=== PATIENT | female | born 1960 | race Caucasian/White ===

== ENCOUNTER 2019-01-14 07:47 | Day surgery (SDC) | payer BC ==
[2019-01-08 17:24] VITALS: BMI 20.9
[2019-01-14 08:23] VITALS: TEMP 97.8
[2019-01-14] MEDS ORDERED: PROPOFOL 20 ML ONE (09:12)
[2019-01-14 11:10] VITALS: BP 120/76; PULSE 74
== END 2019-01-14 11:15 | disposition home or self-care (01) ==
LOC: FASU-ENDO 07:47
PROVIDERS: ATTEND Internal Medicine Gastroenterology
PROC: 0D5H8ZZ Destruction of Cecum, Via Natural or Artificial Opening Endoscopic (ICD-10-PCS; principal; 2019-01-14 10:09)
DX: Z12.11 Encounter for screening for malignant neoplasm of colon (principal); K55.20 Angiodysplasia of colon without hemorrhage

== ENCOUNTER 2020-07-28 05:41 | Emergency (ER) | payer BC ==
[2020-07-28] MEDS ORDERED: ASPIRIN 81 MG CHEWABLE TABLETS PO ONE (05:56)
--- NOTE | 2020-07-28 05:56 | PDOC ---
History of Present Illness - General Chief Complaint: Chest Pain Stated Complaint: chest pain Time Seen by Provider: 07/28/20 05:47 History Source: Patient Exam Limitations: No Limitations - History of Present Illness Initial Comments: 07/28/20 05:57 Woke up with right shoulder pain at nidnight; now with CP like something is pressing on her chest. Pt says she feels SOB Pt has 100%O2sat SHe is compliant with her synthroid of 112mcg daily; complete thyroidectomy Pt has no PMHx other than fertility issues and surgeries/procedures related to that. Is this a multiple visit Asthma Patient?: No Past History - Travel History Traveled outside of the country in the last 30 days: No Close contact w/someone who was outside of country & ill: No - Medical History Allergies/Adverse Reactions: Allergies Allergy/AdvReac Type Severity Reaction Status Date / Time gentamicin Allergy Intermediate Hives Verified 07/28/20 05:42 vancomycin Allergy Intermediate Hives Verified 07/28/20 05:42 Home Medications: Ambulatory Orders Levothyroxine [Synthroid -] 112 mcg PO DAILY 01/08/19 Multivitamins [Tab-A-Vit -] 1 tab PO DAILY 01/08/19 Omeprazole 20 mg PO DAILY #7 capsule. 07/28/20 Anemia: No Asthma: No Cancer: Yes (THYROID) Cardiac Disorders: Yes (MILD HEART MURMUR) CVA: No COPD: No CHF: No Dementia: No Diabetes: No GI Disorders: No Disorders: No HTN: No Hypercholesterolemia: No Liver Disease: No Seizures: No Thyroid Disease: Yes - Surgical History Abdominal Surgery: Yes (LAPAROSCOPY FOR INFERTILITY) Appendectomy: No Cardiac Surgery: No Cholecystectomy: No Lung Surgery: No Neurologic Surgery: No Orthopedic Surgery: No - Psycho-Social/Smoking History Smoking History: Never smoked Review of Systems - Review of Systems Constitutional: No: Symptoms Reported, See HPI, Chills, Diaphoresis, Fever, Loss of Appetite, Malaise, Night Sweats, Weakness, Weight Stable, Unintentional Wgt. Loss, Unexplained wgt Loss, Other HEENTM: No: Symptoms Reported, See HPI, Eye Pain, Blurred Vision, Tearing, Recent change in vision, Double Vision, Cataracts, Ear Pain, Ocular Prothesis, Ear Discharge, Nose Pain, Nose Congestion, Tinnitus, Nose Bleeding, Hearing Loss, Throat Pain, Throat Swelling, Mouth Pain, Dental Problems, Difficulty Swallowing, Mouth Swelling, Other Respiratory: No: Symptoms reported, See HPI, Cough, Orthopnea, Shortness of Susan ath, SOB with Exertion, SOB at Rest, Stridor, Wheezing, Productive cough, Hemoptysis, Other Cardiac (ROS): No: Symptoms Reported, See HPI, Chest Pain, Edema, Irregular Heart Rate, Lightheadedness, Palpitations, Syncope, Chest Tightness, Other ABD/GI: No: Symptoms Reported, See HPI, Abdominal Distended, Abd. Pain w/ defecation, Blood Streaked Bowels, Constipated, Diarrhea, Difficulty Swallowing, Nausea, Poor Appetite, Poor Fluid Intake, Rectal Bleeding, Vomiting, Indigestion, Abdominal cramping, Tarry Stools, Other : No: Symptoms Reported, See HPI, Burning, Dysuria, Discharge, Frequency, Flank Pain, Hematuria, Incontinence, Pain, Urgency, Testicular Mass, Testicular Swelling, Lesions, Testicular Pain, Other Musculoskeletal: No: Symptoms Reported, See HPI, Back Pain, Gout, Joint Pain, Joint Swelling, Muscle Pain, Muscle Weakness, Neck Pain, Joint Stiffness, Other *Physical Exam - Physical Exam General Appearance: Yes: Nourished, Appropriately Dressed, Mild Distress HEENT: positive: EOMI, SARA, Normal ENT Inspection, Normal Voice, Symmetrical, TMs Normal, Pharynx Normal Neck: positive: Tender, Trachea midline, Normal Thyroid, Supple Respiratory/Chest: positive: Lungs Clear, Normal Breath Sounds. negative: Respiratory Distress Cardiovascular: positive: Regular Rhythm, Regular Rate, S1, S2 Gastrointestinal/Abdominal: positive: Flat, Soft Musculoskeletal: positive: Normal Inspection. 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, Fully Oriented, Alert, Normal Mood/Affect, Normal Response, Motor Strength 5/5 Heart Score/ECG Review - History History: Moderately suspicious - Electrocardiogram EKG: Normal - Age Age: 45-65 - Risk Factors Based on the list above the patient has:: No risk factors known - ECG Intrepretation Rhythm: Regular Rhythm Comment:: 07/28/20 06:59 rate 64 bpm - [place]: Normal - P and LA Prominent R with upright T in V1 (true posterior UT): No WPW: No - ST and T Early Repolarization: No Non Specific ST-T Wave changes: No - ECG Impressions Normal ECG: Yes Non-specific ST Elevation: No Ischemic Changes: No Bradycardia: No Torsades mary alice Pointes: No WPW: No ED Treatment Course - LABORATORY CBC & Chemistry Diagram: 07/28/20 06:05 07/28/20 06:05 Medical Decision Making - Medical Decision Making 07/28/20 05:59 Pt will have EKG and CXR and cardiac enzymes and TSH and CBC Pt will be signed out to the day ER docs 07/28/20 06:58 All results are pending. Pt will be signed out to the day ER docs. Discharge - Discharge Information Problems reviewed: Yes Clinical Impression/Diagnosis: Chest pain Qualifiers: Chest pain type: unspecified Qualified Code(s): R07.9 - Chest pain, unspecified Right shoulder pain Qualifiers: Chronicity: acute Qualified Code(s): M25.511 - Pain in right shoulder Condition: Stable Disposition: HOME - Additional Discharge Information Prescriptions: Omeprazole 20 mg PO DAILY #7 capsule.dr - Follow up/Referral Referrals: ON STAFF,NOT [Non Staff, Medical] - - Patient Discharge Instructions Patient Printed Discharge Instructions: DI for Chest Pain Additional Instructions: You were seen in the ER for chest pain. We did lab work on your blood and urine, an electrocardiogram, and a chest X-ray, and we did not find any concerning abnormalities. Your symptoms improved with the medications we gave you in the ER. 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 Please follow up with your regular doctor on Friday. Call their clinic as soon as possible, tell them you were seen in the ER for chest pain and shoulder pain, and tell them you need an appointment. If you have any new or worsening symptoms, especially worsening chest pain, jaw pain or neck pain, recurrence of shoulder/arm pain, worsening shortness of breath, sweats, nausea, loss of consciousness, palpitations, or other symptoms, please take 4 chewable baby aspirin and come back to the ER at any time (24 hours a day). If you are having severe or life threatening symptoms, or symptoms that make it unsafe to drive or have someone drive you, please call 911. - Post Discharge Activity
[2020-07-28] MEDS ORDERED: morphine CARPU-JECT 2 MG/1 ML DISP.SYRIN IVPUSH ONE (06:07)
[2020-07-28] MEDS ORDERED: ASPIRIN 81 MG CHEWABLE TABLETS ONE (06:09)
[2020-07-28 06:19] VITALS: PULSE 58; TEMP 98.3; BMI 21.3
[2020-07-28] MEDS ORDERED: morphine SULFATE 4 MG/ML VIAL ONE (06:31)
[2020-07-28 07:30] LABS: HEMATOCRIT 44.9 % (32.4-45.2); MCH 30.1 pg (25.7-33.7); MCHC 33.4 g/dl (32.0-36.0); MEAN CELL VOLUME 90.2 fl (80-96); MEAN PLT VOLUME 7.6 fl (7.5-11.1); PLATELET COUNT 347 K/MM3 (134-434); RBC 4.98 M/mm3 (3.60-5.2); RDW 12.4 % (11.6-15.6); WHITE BLOOD COUNT 9.5 K/mm3 (4.0-10.8)
[2020-07-28 07:36] LABS: ALBUMIN 4.4 g/dl (3.4-5.0); BILIRUBIN,TOTAL 0.8 mg/dl (0.2-1); CALCIUM 9.4 mg/dl (8.5-10); CREATININE 0.7 mg/dl (0.55-1.3); POTASSIUM 4.3 mmol/L (3.5-5.1); TOT PROT 7.1 g/dl (6.4-8.2)
--- NOTE | 2020-07-28 08:46 | PDOC ---
*Physical Exam - Vital Signs Last Vital Signs Temp Pulse Resp BP Pulse Ox 98.3 F 58 L 17 140/80 100 07/28/20 06:14 07/28/20 06:14 07/28/20 06:14 07/28/20 06:14 07/28/20 06:14 - Physical Exam Patient's care endorsed to me by Dr. Jordan at the end of her shift pending [facility] workup and reassessment. Patient is a 60YOF without PMH who p/w chest pain radiating to her shoulder, unlike any prior episodes before. At the time of my exam she states she is pain free, she has normal exam, and wants to go home. We discuss we are waiting for the remaining results and will do dispo planning. Heart Score/ECG Review - History History: Moderately suspicious - Electrocardiogram EKG: Normal - Age Age: 45-65 - Risk Factors Based on the list above the patient has:: No risk factors known - Troponin Troponin: </= normal limit - Score Heart Score - Total: 2 #1 Sinus rhythm, rate 65, normal axis and intervals, no ischemic ST-T changes ED Treatment Course - LABORATORY CBC & Chemistry Diagram: 07/28/20 06:05 07/28/20 06:05 - ADDITIONAL ORDERS Additional order review: Laboratory Results 07/28/20 07/28/20 06:05 06:05 Sodium 139 Potassium 4.3 Chloride 105 Carbon Dioxide 27 Anion Gap 7 L BUN 18.0 Creatinine 0.7 Est GFR (CKD-EPI)AfAm 107.62 Est GFR (CKD-EPI)NonAf 92.86 Random Glucose 102 Calcium 9.4 Total Bilirubin 0.8 AST 25 ALT 23 Alkaline Phosphatase 71 Creatine Kinase 36 Troponin I < 0.03 Total Protein 7.1 Albumin 4.4 07/28/20 06:05 RBC 4.98 MCV 90.2 MCHC 33.4 RDW 12.4 MPV 7.6 - Medications Given in the ED: ED Medications Discontinued Medications Generic Name Dose Route Start Last Admin Trade Name Freq PRN Reason Stop Dose Admin Aspirin 324 mg 07/28/20 05:56 07/28/20 06:11 Asa - PO 07/28/20 05:57 324 mg ONCE ONE Administration Morphine Sulfate 2 mg 07/28/20 06:07 07/28/20 06:35 Morphine Injection - IVPUSH 07/28/20 06:08 2 mg ONCE ONE Administration Medical Decision Making - Medical Decision Making Provider Orders Category Date Time Status ELECTROCARDIOGRAM [CARD] Stat Cardiology 07/28/20 05:47 Completed EKG needed NOW Care 07/28/20 05:47 Completed CARDIAC PROFILE (ONLY [facility]) Stat Lab 07/28/20 06:05 Completed CBC [COMPLETE BLOOD COUNT] Stat Lab 07/28/20 06:05 Completed COMP METABOLIC PANEL Stat Lab 07/28/20 06:05 Completed THYROID STIMULATING HORMONE Stat Lab 07/28/20 06:05 Completed Aspirin [ASA -] Medication 07/28/20 06:09 Discontinued 324 mg .ROUTE .STK-MED ONE Aspirin [ASA -] Medication 07/28/20 05:56 Discontinued 324 mg PO ONCE ONE Morphine Injection - Medication 07/28/20 06:07 Discontinued 2 mg IVPUSH ONCE ONE Morphine Sulfate Medication 07/28/20 06:31 Discontinued 4 mg .ROUTE .STK-MED ONE CHEST PA & LAT [RAD] Stat Radiology 07/28/20 05:56 Completed Medications Discontinued Medications Generic Name Dose Route Start Last Admin Trade Name Freq PRN Reason Stop Dose Admin Aspirin 324 mg 07/28/20 05:56 07/28/20 06:11 Asa - PO 07/28/20 05:57 324 mg ONCE ONE Administration Aspirin Confirm 07/28/20 06:09 Asa - Administered 07/28/20 06:10 Dose 324 mg .ROUTE .STK-MED ONE Morphine Sulfate 2 mg 07/28/20 06:07 07/28/20 06:35 Morphine Injection - IVPUSH 07/28/20 06:08 2 mg ONCE ONE Administration Morphine Sulfate Confirm 07/28/20 06:31 Morphine Sulfate Administered 07/28/20 06:32 Dose 4 mg .ROUTE .STK-MED ONE Lab Results WBC 9.5 K/mm3 (4.0-10.8) 07/28/20 06:05 RBC 4.98 M/mm3 (3.60-5.2) 07/28/20 06:05 Hgb 15.0 GM/dl (10.7-15.3) 07/28/20 06:05 Hct 44.9 % (32.4-45.2) 07/28/20 06:05 MCV 90.2 fl (80-96) 07/28/20 06:05 MCH 30.1 pg (25.7-33.7) 07/28/20 06:05 MCHC 33.4 g/dl (32.0-36.0) 07/28/20 06:05 RDW 12.4 % (11.6-15.6) 07/28/20 06:05 Plt Count 347 K/MM3 (134-434) 07/28/20 06:05 MPV 7.6 fl (7.5-11.1) 07/28/20 06:05 Sodium 139 mmol/L (136-145) 07/28/20 06:05 Potassium 4.3 mmol/L (3.5-5.1) 07/28/20 06:05 Chloride 105 mmol/L (98-107) 07/28/20 06:05 Carbon Dioxide 27 mmol/L (21-32) 07/28/20 06:05 Anion Gap 7 MMOL/L (8-16) L 07/28/20 06:05 BUN 18.0 mg/dl (7-18) 07/28/20 06:05 Creatinine 0.7 mg/dl (0.55-1.3) 07/28/20 06:05 Est GFR (CKD-EPI)AfAm 107.62 07/28/20 06:05 Est GFR (CKD-EPI)NonAf 92.86 07/28/20 06:05 Random Glucose 102 mg/dl (74-106) 07/28/20 06:05 Calcium 9.4 mg/dl (8.5-10) 07/28/20 06:05 Total Bilirubin 0.8 mg/dl (0.2-1) 07/28/20 06:05 AST 25 U/L (15-37) 07/28/20 06:05 ALT 23 U/L (13-61) 07/28/20 06:05 Alkaline Phosphatase 71 U/L (45-117) 07/28/20 06:05 Creatine Kinase 36 U/L (26-192) 07/28/20 06:05 Troponin I < 0.03 ng/ml (0.00-0.05) 07/28/20 06:05 Total Protein 7.1 g/dl (6.4-8.2) 07/28/20 06:05 Albumin 4.4 g/dl (3.4-5.0) 07/28/20 06:05 TSH 3.19 uIU/ml (0.358-3.74) 07/28/20 06:05 RAD/CHEST PA LAT Chest: Right shoulder pain 2 views of the chest reveal clear hyper aerated lungs, sharp angles, normal mediastinum and intact soft tissues. The bones appear intact. An acute process is not seen. If shoulder pain continues then further imaging with shoulder images should be obtained. The patient has had no recurrence of pain since arrival. Her HEART score is 2. She is comfortable with the plan to go home and f/u with her PCP on Friday. 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 She is counseled to take ASA and return i mmediately if any recurrence of the pain or any other emergency symptoms. She and her partner state they live very close by the ED. Last Vital Signs Temp Pulse Resp BP Pulse Ox 98.3 F 58 L 18 128/76 100 07/28/20 06:14 07/28/20 06:14 07/28/20 08:15 07/28/20 08:15 07/28/20 08:15 Discharge - Discharge Information Problems reviewed: Yes Clinical Impression/Diagnosis: Chest pain Qualifiers: Chest pain type: unspecified Qualified Code(s): R07.9 - Chest pain, unspecified Right shoulder pain Qualifiers: Chronicity: acute Qualified Code(s): M25.511 - Pain in right shoulder Condition: Stable Disposition: HOME - Admission No - Additional Discharge Information Prescriptions: Omeprazole 20 mg PO DAILY #7 capsule.dr - Follow up/Referral Referrals: ON STAFF,NOT [Non Staff, Medical] - - Patient Discharge Instructions Patient Printed Discharge Instructions: DI for Chest Pain Additional Instructions: You were seen in the ER for chest pain. We did lab work on your blood and urine, an electrocardiogram, and a chest X-ray, and we did not find any concerning abnormalities. Your symptoms improved with the medications we gave you in the ER. 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 Please follow up with your regular doctor on Friday. Call their clinic as soon as possible, tell them you were seen in the ER for chest pain and shoulder pain, and tell them you need an appointment. If you have any new or worsening symptoms, especially worsening chest pain, jaw pain or neck pain, recurrence of shoulder/arm pain, worsening shortness of breath, sweats, nausea, loss of consciousness, palpitations, or other symptoms, please take 4 chewable baby aspirin and come ba ck to the ER at any time (24 hours a day). If you are having severe or life threatening symptoms, or symptoms that make it unsafe to drive or have someone drive you, please call 911. - Post Discharge Activity
[2020-07-28 08:57] VITALS: BP 128/76
--- NOTE | 2020-07-28 10:55 | EKG ---
Test Reason : Blood Pressure : / mmHG Vent. Rate : 064 BPM Atrial Rate : 064 BPM P-R Int : 142 ms QRS Dur : 082 ms QT Int : 420 ms P-R-T Axes : 081 078 064 degrees QTc Int : 433 ms NORMAL SINUS RHYTHM POSSIBLE LEFT ATRIAL ENLARGEMENT POSSIBLE ANTEROSEPTAL INFARCT , AGE UNDETERMINED ABNORMAL ECG NO PREVIOUS ECGS AVAILABLE Confirmed by BERNADETTE WEATHERS MD ([id number]) on 07/28/2020 10:54:47 AM Referred By: DR NGUYEN Confirmed By:BERNADETTE WEATHERS MD
--- NOTE | 2020-08-08 10:39 | EKG ---
Test Reason : Blood Pressure : / mmHG Vent. Rate : 138 BPM Atrial Rate : 108 BPM P-R Int : 000 ms QRS Dur : 074 ms QT Int : 358 ms P-R-T Axes : 000 064 072 degrees QTc Int : 542 ms Sinus rhythm, Atrial flutter with variable AV block. SEPTAL INFARCT (CITED ON OR BEFORE 28-JUL-2020) INFEROLATERAL INJURY PATTERN ACUTE MN / STEMI Consider right ventricular involvement in acute inferior infarct ABNORMAL ECG WHEN COMPARED WITH ECG OF 29-JUL-2020 14:37, ST MORE ELEVATED IN INFERIOR LEADS ST ELEVATION NOW PRESENT IN LATERAL LEADS NONSPECIFIC T WAVE ABNORMALITY NOW EVIDENT IN LATERAL LEADS Confirmed by MD HERB, JESSICA ([id number]) on 08/08/2020 10:39:35 AM Referred By: Confirmed By:JESSICA ESTEVEZ MD
== END 2020-07-28 08:55 | disposition home or self-care (01) ==
LOC: FER 05:41
PROC: 3E033NZ Introduction of Analgesics, Hypnotics, Sedatives into Peripheral Vein, Percutaneous Approach (ICD-10-PCS; principal; 2020-07-28)
DX: R07.9 Chest pain, unspecified (principal); M25.511 Pain in right shoulder
CPT/HCPCS: 36415; 71046-TC-FY; 80053; 82550; 84443; 84484; 85027; 93005; 93010; 99285-25

== ENCOUNTER 2020-07-29 13:01 | Inpatient (IN) | payer BC ==
[2020-07-29] MEDS ORDERED: dilTIAZem HCL 125 MG/25 ML - 25 ML VIAL ONE ×2 (13:18→14:49)
--- NOTE | 2020-07-29 13:25 | PDOC ---
History of Present Illness - General Chief Complaint: Irregular Heart Beat Stated Complaint: CHEST PAIN Time Seen by Provider: 07/29/20 13:24 - History of Present Illness Initial Comments: 07/29/20 16:02 60yo F w/ no PMH presents w/ CP and new onset AF. She developed R shoulder pain late night/early Friday morning that then migrated to the sternum area. It felt like "someone standing on my chest." She presented to [facility] yesterday and was found to be in NSR w/ negative troponin. She was d/c. This morning the discomfort returned, so she went to [facility]. There she was found to be in AF w/ RVR. [facility] called 911, and EMS administered 20mg Diltiazem IV. She presents asymptomatically but in AF w/ RVR. Past History - Medical History Allergies/Adverse Reactions: Allergies Allergy/AdvReac Type Severity Reaction Status Date / Time gentamicin Allergy Intermediate Hives Verified 07/29/20 13:26 vancomycin Allergy Intermediate Hives Verified 07/29/20 13:26 Home Medications: Ambulatory Orders Levothyroxine [Synthroid -] 112 mcg PO DAILY 01/08/19 Multivitamins [Tab-A-Vit -] 1 tab PO DAILY 01/08/19 Omeprazole 20 mg PO DAILY #7 capsule. 07/28/20 Anemia: No Asthma: No Cancer: Yes (THYROID) Cardiac Disorders: Yes (MILD HEART MURMUR) CVA: No COPD: No CHF: No Dementia: No Diabetes: No GI Disorders: No Disorders: No HTN: No Hypercholesterolemia: No Liver Disease: No Seizures: No Thyroid Disease: Yes - Surgical History Abdominal Surgery: Yes (LAPAROSCOPY FOR INFERTILITY) Appendectomy: No Cardiac Surgery: No Cholecystectomy: No Lung Surgery: No Neurologic Surgery: No Orthopedic Surgery: No - Psycho-Social/Smoking History Smoking History: Never smoked Review of Systems - Review of Systems Able to Perform ROS?: Yes Constitutional: No: Chills, Diaphoresis, Fever, Weakness HEENTM: No: Ear Pain, Nose Congestion, Throat Pain Respiratory: No: Cough, Orthopnea Cardiac (ROS): Yes: Other (1 episode, at [facility]) ABD/GI: No: Symptoms Reported : No: Symptoms Reported Musculoskeletal: No: Symptoms Reported Integumentary: No: Symptoms Reported Neurological: No: Symptoms reported Heart Score/ECG Review - History History: Moderately suspicious - Electrocardiogram EKG: Normal - Age Age: 45-65 - Risk Factors Risk Factors Heart Score: No Hx Hypercholesterolemia, No Hx Hypertension, No Hx Diabetes, No Smoking History, No Positive family hx of cardiac disease, No Hx Obesity Based on the list above the patient has:: 1-2 risk factors - Troponin Troponin: </= normal limit - Score Heart Score - Total: 3 - ECG Intrepretation Rhythm: Irregularly Irregular - ECG Impressions Normal ECG: No Comment:: 07/29/20 16:13 paroxysmal AF w/ RVR ED Treatment Course - LABORATORY CBC & Chemistry Diagram: 07/29/20 14:15 07/29/20 14:35 Discharge - Discharge Information Problems reviewed: Yes Clinical Impression/Diagnosis: Atrial fibrillation with RVR Afib Qualifiers: Atrial fibrillation type: paroxysmal Qualified Code(s): I48.0 - Paroxysmal atrial fibrillation Condition: Improved - Admission Yes - Follow up/Referral - Patient Discharge Instructions - Post Discharge Activity
[2020-07-29] MEDS ORDERED: dilTIAZem HCL 50 MG/10 ML - 10 ML VIAL IVPUSH ONE (14:43)
[2020-07-29 14:44] LABS: BASO % 0.3 % (0-2.0); EOS % 0.5 % (0-4.5); HEMATOCRIT 41.8 % (32.4-45.2); LYMPH % 17.8 % (8-40); MCH 29.9 pg (25.7-33.7); MCHC 33.5 g/dl (32.0-36.0); MEAN CELL VOLUME 89.4 fl (80-96); MEAN PLT VOLUME 7.7 fl (7.5-11.1); MONO % 12.6 % (3.8-10.2); NEUT % 68.8 % (42.8-82.8); PLATELET COUNT 265 K/MM3 (134-434); RBC 4.67 M/mm3 (3.60-5.2); RDW 12.8 % (11.6-15.6); WHITE BLOOD COUNT 9.8 K/mm3 (4.0-10.0)
[2020-07-29] MEDS ORDERED: LACTATED RINGERS SOLUTION 1000 ML INFUS.BAG IV ONE (14:51)
[2020-07-29 14:55] LABS: PROTHROMBIN TIME (PATIENT) 11.8 SEC (9.7-13.0)
--- NOTE | 2020-07-29 14:56 | EKG ---
Test Reason : Blood Pressure : / mmHG Vent. Rate : 081 BPM Atrial Rate : 083 BPM P-R Int : 000 ms QRS Dur : 076 ms QT Int : 362 ms P-R-T Axes : 000 066 052 degrees QTc Int : 420 ms ATRIAL FIBRILLATION SEPTAL INFARCT (CITED ON OR BEFORE 28-JUL-2020) ABNORMAL ECG WHEN COMPARED WITH ECG OF 28-JUL-2020 06:00, ATRIAL FIBRILLATION HAS REPLACED SINUS RHYTHM Confirmed by Donnell Montalvo ([id number]) on 07/29/2020 2:56:08 PM Referred By: Confirmed By:Donnell Montalvo
[2020-07-29 14:58] LABS: ACTIVATED PTT 27.9 SECONDS (25.2-36.5)
[2020-07-29 15:24] LABS: ALBUMIN 3.8 g/dl (3.4-5.0); ALK PHOS 77 U/L (45-117); ANION GAP 10 MMOL/L (8-16); BILIRUBIN,TOTAL 0.9 mg/dL (0.2-1); BLOOD UREA NITROGEN 9.4 mg/dL (7-18); CALCIUM 9.2 mg/dL (8.5-10.1); CHLORIDE 109 mmol/L (98-107); CO2 24 mmol/L (21-32); CREATININE 0.6 mg/dL (0.55-1.3); GLUCOSE,RANDOM 116 mg/dL (74-106); POTASSIUM 3.6 mmol/L (3.5-5.1); SGOT/AST 11 U/L (15-37); SGPT/ALT 23 U/L (13-61); SODIUM 142 mmol/L (136-145)
[2020-07-29] MEDS ORDERED: dilTIAZem HCL 30 MG TABLET PO ONE (15:28)
--- NOTE | 2020-07-29 15:43 | PDOC ---
Documentation entered by Maryanne Roe SCRIBE, acting as scribe for Jennifer Arango MD. Jennifer Arango MD: This documentation has been prepared by the Jyothi ojeda Xhesika, SCRIBE, under my direction and personally reviewed by me in its entirety. I confirm that the documentation accurately reflects all work, treatment, procedures, and medical decision making performed by me. Attending Attestation - Resident Resident Name: Roderick Almeida - ED Attending Attestation I have performed the following: I have examined & evaluated the patient, The case was reviewed & discussed with the resident, I agree w/resident's findings & plan, Exceptions are as noted - HPI HPI: 07/29/20 13:48 The patient is a 60y/o F with a pmh of thyroid ca, s/p thyroidectomy and mild heart murmur who presents to the ED from [facility] for chest pain and irregular heart rate. Pt was seen at [facility] ER yesterday for similar symptoms of chest pain/ pressure.no leg sweling no h/o pe or dvt. was worked up with ekg trop and labs. sent home, today pt still having chest pressure so went to urgent care at [facility], doctor office closed. on performing ekg at [facility], found to be in afib. called ems. ems arrival, was given diltiazem ivp. pt deneis know h/o afib. has had feeling recenlty of " someone standing on her chest " Pt recieved 25mg Cardizem en-route to the ED. Allergies: gentamicin, Vancomycin PCP: Komal Trimble 07/29/20 15:38 - Physicial Exam PE: 07/29/20 15:41 Awake alert no acute distress lungs are clear bilaterally heart is regular tachycardia no murmurs rubs or gallops abdomen soft nontender extremities are warm well perfused there is no noted peripheral edema no calf tenderness skin is warm and dry neurologically patient is awake alert and oriented x3 - Medical Decision Making 07/29/20 15:41 60-year-old female history of thyroid CA status post thyroid removal here with complaining of intermittent chest pressure seen yesterday. Found to be in A. fib today at [facility] and given diltiazem by EMS. On our exam here patient is found to be in A. fib with RVR with a heart rate as high as 143 she was given diltiazem 15 mg IV push her rate did improve to 80 her blood pressure was borderline we will give her IV hydration due to the fact the patient has been having intermittent chest pressure associated with new onset A. fib concern for equivalent of a positive stress test will require admission to telemetry and evaluation for angina ACS and new onset A. 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
[2020-07-29] MEDS ORDERED: dilTIAZem HCL 30 MG TABLET ONE (16:09)
--- NOTE | 2020-07-29 16:39 | PN ---
Teaching Attending Note Name of Resident: Farideh Ferreira ATTENDING PHYSICIAN STATEMENT I saw and evaluated the patient. I reviewed the resident's note and discussed the case with the resident. I agree with the resident's findings and plan as documented. SUBJECTIVE: 60 year old female with known history of thyroid cancer sp total thyroidectomy years ago, now on Levothyroxine, who is presenting with chest pressure which began yesterday and persistent through today. Found to be in Afib at [facility] where she was seen and counseled to present to the ED OBJECTIVE: Kindly refer to Dr Ferreira's exam which I reviewed with her and agree with ASSESSMENT AND PLAN: 1. Afib RVR - now controlled after having received diltiazem IV - Chadsvasc score= 0 - aspirin - cardiology consultation - continuous cardiac monitoring - TSH acceptable 2. hypothyoridism - cont levothyroxine 3. DVT prophylaxis - Lovenox
--- NOTE | 2020-07-29 16:51 | HP ---
CHIEF COMPLAINT: chest pain PCP: @ [facility] HISTORY OF PRESENT ILLNESS: 60 y.o. F PMH thyroid CA s/p total thyroidectomy presenting for chest pain. The patient states on Saturday 07/28 (yesterday) she went to [place] ED due to complaints of R shoulder pain radiating substernally , 8/10 intensity. She tried tylenol at home that did not help the pain however after getting 325mg ASA and 2mg morphine at [place] ED the pain had decreased to 2/10. Was d/c'd from the ED with instructions to f/u with her PCP today. At [facility] PCP visit patient was found to be in Afib with RVR rate 150s and was sent to the emergency dept. En route to [facility] ED patient received 20mg IV diltiazem with improvement of rate to 100s. On arrival to ED rate was again increased to 130s. Pt was then given 15mg IV Diltiazem and 30mg PO diltiazem with improvement of rate to 90s. Rate is now controlled in the 80s, repeat EKG done showing persisting A-fib. ER course was notable for: (1) EKG 07/28 ([place]: NSR rate 64 bpm, no ischemic changes. EKF 9.5 [facility] ED: A-fib rate 81bpm no ST-T changes qtc 420 (2) Diltiazem 15mg IV, then 30mg PO (3) Recent Travel: denies PAST MEDICAL HISTORY: thyroid CA s/p total resection PAST SURGICAL HISTORY: Social History: Smoking: denies Alcohol: drinks daily 1-2 glasses wine Drugs: denies Family History: no family hx of cardiac disease Allergies gentamicin Allergy (Intermediate, Verified 07/29/20 13:26) Hives vancomycin Allergy (Intermediate, Verified 07/29/20 13:26) Hives HOME MEDICATIONS: Home Medications Medication Instructions Recorded Levothyroxine [Synthroid -] 112 mcg PO DAILY 01/08/19 Multivitamins [Tab-A-Vit -] 1 tab PO DAILY 01/08/19 Omeprazole 20 mg PO DAILY #7 capsule. 07/28/20 REVIEW OF SYSTEMS CONSTITUTIONAL: Absent: fever, chills, diaphoresis, generalized weakness, malaise, loss of appetite, weight change HEENT: Absent: rhinorrhea, nasal congestion, throat pain, throat swelling, difficulty swallowing, mouth swelling, ear pain, eye pain, visual changes CARDIOVASCULAR: chest pain Absent: syncope, palpitations, irregular heart rate, lightheadedness, peripheral edema RESPIRATORY: Absent: cough, shortness of breath, dyspnea with exertion, orthopnea, wheezing, stridor, hemoptysis GASTROINTESTINAL: Absent: abdominal pain, abdominal distension, nausea, vomiting, diarrhea, constipation, melena, hematochezia GENITOURINARY: Absent: dysuria, frequency, urgency, hesitancy, hematuria, flank pain, genital pain MUSCULOSKELETAL: Absent: myalgia, arthralgia, joint swelling, back pain, neck pain SKIN: Absent: rash, itching, pallor HEMATOLOGIC/IMMUNOLOGIC: Absent: easy bleeding, easy bruising, lymphadenopathy, frequent infections ENDOCRINE: Absent: unexplained weight gain, unexplained weight loss, heat intolerance, cold intolerance NEUROLOGIC: Absent: headache, focal weakness or paresthesias, dizziness, unsteady gait, seizure, mental status changes, bladder or bowel incontinence PSYCHIATRIC: Absent: anxiety, depression, suicidal or homicidal ideation, hallucinations. PHYSICAL EXAMINATION Vital Signs - 24 hr 07/29/20 07/29/20 13:16 14:50 Temperature 97.9 F Pulse Rate 73 Pulse Rate [ 143 H Apical] Respiratory 16 18 Rate Blood Pressure 91/66 Blood Pressure 110/70 [Right Arm] O2 Sat by Pulse 98 97 Oximetry (%) GENERAL: Awake, alert, and fully oriented, in no acute distress. HEENT: NCAT. EOMI. PERRLA. No JVD. LUNGS: Breath sounds equal, clear to auscultation bilaterally. No wheezes, and no crackles. No accessory muscle use. HEART: Regular rate and rhythm, normal S1 and S2 without murmur, rub or gallop. Chest pain non reproducible. ABDOMEN: Soft, nontender, not distended, normoactive bowel sounds, no guarding, no rebound, no masses MUSCULOSKELETAL: Normal range of motion at all joints. No bony deformities or tenderness. No CVA or paraspinal tenderness. EXTREMITIES: 2+ pulses, warm, well-perfused. No calf tenderness. No peripheral edema. NEUROLOGICAL: Cranial nerves II-XII intact. Normal speech. PSYCHIATRIC: Cooperative. Good eye contact. Appropriate mood and affect. SKIN: No rashes or lesions noted. Laboratory Results - last 24 hr 07/29/20 07/29/20 07/29/20 14:15 14:15 14:15 WBC 9.8 RBC 4.67 Hgb 14.0 Hct 41.8 MCV 89.4 MCH 29.9 MCHC 33.5 RDW 12.8 Plt Count 265 MPV 7.7 Absolute Neuts (auto) 6.7 Neutrophils % 68.8 Lymphocytes % 17.8 Monocytes % 12.6 H Eosinophils % 0.5 Basophils % 0.3 Nucleated RBC % 0 PT with INR 11.80 INR 1.00 PTT (Actin FS) 27.9 Sodium Cancelled Potassium Cancelled Chloride Cancelled Carbon Dioxide Cancelled Anion Gap Cancelled BUN Cancelled Creatinine Cancelled Est GFR (CKD-EPI)AfAm Cancelled Est GFR (CKD-EPI)NonAf Cancelled Random Glucose Cancelled Calcium Cancelled Total Bilirubin AST ALT Alkaline Phosphatase Creatine Kinase Troponin I Total Protein Albumin TSH Free T4 07/29/20 14:35 WBC RBC Hgb Hct MCV MCH MCHC RDW Plt Count MPV Absolute Neuts (auto) Neutrophils % Lymphocytes % Monocytes % Eosinophils % Basophils % Nucleated RBC % PT with INR INR PTT (Actin FS) Sodium 142 Potassium 3.6 Chloride 109 H Carbon Dioxide 24 Anion Gap 10 BUN 9.4 Creatinine 0.6 Est GFR (CKD-EPI)AfAm 113.22 Est GFR (CKD-EPI)NonAf 97.69 Random Glucose 116 H Calcium 9.2 Total Bilirubin 0.9 AST 11 L ALT 23 Alkaline Phosphatase 77 Creatine Kinase 26 Troponin I < 0.02 Total Protein 7.0 Albumin 3.8 TSH 0.59 Free T4 1.39 ASSESSMENT/PLAN: 60 y.o. F PMH thyroid CA s/p total thyroidectomy presenting for chest pain, admitted for new onset A-fib. #A-fib (new onset) with RVR -Rate controlled with diltiazem (total 50 mg IV, 30mg PO) -continue daily rate control, started atenolol 25mg -f/u repeat EKG -trops neg x 1 f/u repeat -cardiology consulted- Dr. Martinez's group -echo as per cardiology recommendations -telemetry monitoring -starting daily ASA; [id number] score 1, no indication for AC at this time #Hx thyroid cancer -well controlled with synthroid 112mcg daily, continue -TSH & free T4 WNL #FEN -no standing fluids -monitor & replete electrolytes prn -Na controlled diet #PPX -DVT: LVX 40sq daily Dispo: admit to telemetry Family Medical History Family History: As Documented Visit type - Emergency Visit Emergency Visit: Yes ED Registration Date: 07/29/20 Care time: The patient presented to the Emergency Department on the above date and was hospitalized for further evaluation of their emergent condition. - New Patient This patient is new to me today: Yes Date on this admission: 07/30/20 - Critical Care Critical Care patient: No ATTENDING PHYSICIAN STATEMENT I saw and evaluated the patient. I reviewed the resident's note and discussed the case with the resident. I agree with the resident's findings and plan as documented. SUBJECTIVE: OBJECTIVE: ASSESSMENT AND PLAN:
[2020-07-30 01:18] VITALS: BMI 20.9
[2020-07-30] MEDS: LEVOTHYROXINE NA 112 MCG TABLET (FP) PO SCH (06:32)
[2020-07-30 06:52] LABS: BASO % 0.7 % (0-2.0); HEMATOCRIT 43.7 % (32.4-45.2); HEMOGLOBIN 14.4 GM/dL (10.7-15.3); LYMPH % 28.1 % (8-40); MCH 29.5 pg (25.7-33.7); MCHC 33.1 g/dl (32.0-36.0); MEAN CELL VOLUME 89.2 fl (80-96); MEAN PLT VOLUME 7.7 fl (7.5-11.1); MONO % 12.7 % (3.8-10.2); NEUT % 56.5 % (42.8-82.8); PLATELET COUNT 246 K/MM3 (134-434); RDW 12.9 % (11.6-15.6)
[2020-07-30 07:15] LABS: ALBUMIN 3.6 g/dl (3.4-5.0); ALK PHOS 74 U/L (45-117); ANION GAP 7 MMOL/L (8-16); BILIRUBIN,TOTAL 0.6 mg/dL (0.2-1); BLOOD UREA NITROGEN 11.8 mg/dL (7-18); CALCIUM 9.1 mg/dL (8.5-10.1); CHLORIDE 109 mmol/L (98-107); CHOLESTEROL 173 mg/dL (50-200); CO2 26 mmol/L (21-32); CREATININE 0.6 mg/dL (0.55-1.3); GLUCOSE,RANDOM 99 mg/dL (74-106); HDL CHOLESTEROL 86 mg/dL (40-60); LDL CHOLESTEROL (ONLY SJRH) 77 mg/dL (5-100); MAGNESIUM 2.1 mg/dL (1.8-2.4); PHOSPHOROUS 3.2 mg/dL (2.5-4.9); POTASSIUM 3.9 mmol/L (3.5-5.1); SGOT/AST 15 U/L (15-37); SGPT/ALT 24 U/L (13-61); SODIUM 142 mmol/L (136-145); TOT PROT 6.9 g/dl (6.4-8.2); TRIGLYCERIDES 69 mg/dL (0-150)
--- NOTE | 2020-07-30 07:44 | CON.CARD ---
Consult Consult Specialty:: cardiology - History of Present Illness History of Present Illness: 60 y.o. F PMH thyroid CA s/p total thyroidectomy presenting for chest pain. The patient states on Saturday 07/28 she went to [place] ED due to complaints of R shoulder pain mid substernal pain exacerbated by deep inspiration. she was in NSR at that time. she went to PCP and was found to be in Afib with RVR rate 150s and was sent to the emergency dept. She converted to NSR. No ho embolic events, no DM, HTN and no change in exercise capacity. Chest pain resolved. - Past Medical History ...: No - Alcohol/Substance Use Hx Alcohol Use: Yes (DAILY) - Smoking History Smoking history: Never smoked Have you smoked in the past 12 months: No Home Medications - Allergies Allergies/Adverse Reactions: Allergies Allergy/AdvReac Type Severity Reaction Status Date / Time gentamicin Allergy Intermediate Hives Verified 07/29/20 13:26 vancomycin Allergy Intermediate Hives Verified 07/29/20 13:26 - Home Medications Home Medications: Ambulatory Orders Levothyroxine [Synthroid -] 112 mcg PO DAILY 01/08/19 Multivitamins [Tab-A-Vit -] 1 tab PO DAILY 01/08/19 Omeprazole 20 mg PO DAILY #7 capsule. 07/28/20 Review of Systems - Review of Systems Constitutional: reports: No Symptoms Eyes: reports: No Symptoms HENT: reports: No Symptoms Neck: reports: No Symptoms Cardiovascular: reports: No Symptoms Respiratory: reports: No Symptoms Gastrointestinal: reports: No Symptoms Genitourinary: reports: No Symptoms Breasts: reports: No Symptoms Reported Musculoskeletal: reports: No Symptoms Integumentary: reports: No Symptoms Vital Signs: Vital Signs Temperature 98.0 F 07/30/20 06:00 Pulse Rate 58 L 07/30/20 06:00 Respiratory Rate 20 07/30/20 06:00 Blood Pressure 105/62 07/30/20 06:00 O2 Sat by Pulse Oximetry (%) 100 07/30/20 06:00 Constitutional: Yes: Well Nourished Eyes: Yes: WNL HENT: Yes: WNL Neck: Yes: WNL Respiratory: Yes: WNL Gastrointestinal: Yes: WNL Renal/: Yes: WNL Cardiovascular: Yes: Regular Rate and Rhythm JVD: No Carotid Bruit: No PMI: Non-Displaced Heart Sounds: Yes: S1, S2 Murmur: No: Systolic Murmur, Diastolic Murmur Edema: No - Other Data Labs, Other Data: CBC, BMP 07/30/20 05:40 07/30/20 05:40 INR, PTT INR 1.00 (0.83-1.09) 07/29/20 14:15 Troponin, BNP 07/29/20 07/29/20 07/30/20 14:35 20:10 05:40 Troponin I < 0.02 < 0.02 < 0.02 Troponin, BNP 07/29/20 07/29/20 07/30/20 14:35 20:10 05:40 Troponin I < 0.02 < 0.02 < 0.[address] T changes. Imaging - Results Chest X-ray: Report Reviewed Problem List - Problems (1) Afib Code(s): I48.91 - UNSPECIFIED ATRIAL FIBRILLATION Qualifiers: Atrial fibrillation type: paroxysmal Qualified Code(s): I48.0 - Paroxysmal atrial fibrillation Assessment/Plan Ho thyroidectomy. Pleuritic Chest pain and new onset transient Atrial fibrillation. Converted to NSR CHADS-Vasc=1 -Given pleuritic Chest pain and new onset arrhythmia, consider ruling out for P E. -Echo -Continue telem. Continue Atenolol.
[2020-07-30] MEDS: ASPIRIN COATED 81 MG TABLET.EC PO SCH (09:23)
[2020-07-30] MEDS: ENOXAPARIN NA (PORCINE) 40 MG/0.4 ML DISP.SYRIN SQ SCH (09:23)
[2020-07-30] MEDS: MULTIVITAMINS (DAILY MVI) TABLET (FP) PO SCH (09:24)
[2020-07-30] MEDS: ATENOLOL 25 MG TABLET (FP) PO SCH (09:24)
[2020-07-30] MEDS: PANTOPRAZOLE 20 MG TABLET PO SCH (09:24)
--- NOTE | 2020-07-30 13:25 | PN ---
Physical Exam: SUBJECTIVE: Patient seen and examined No new complaint no palpitation she still in atrial fibrillation but heart rate is under 80. OBJECTIVE: Vital Signs Period Temp Pulse Resp BP Sys/Haider Pulse Ox Last 24 Hr 97.2 F-98.0 F 58-143 18-22 104-121/62-72 97-100 Patient is comfortable HEENT normal Neck supple no JVD Lungs clear no wheezing Heart examination, normal heart sounds and irregular Abdomen nontender no organomegaly bowel sounds normal Extremities no edema no cyanosis normal pulses Neurologically he is alert awake oriented, nonfocal Skin no rash noted Laboratory Results - last 24 hr 07/29/20 07/29/20 07/29/20 14:15 14:15 14:15 WBC 9.8 RBC 4.67 Hgb 14.0 Hct 41.8 MCV 89.4 MCH 29.9 MCHC 33.5 RDW 12.8 Plt Count 265 MPV 7.7 Absolute Neuts (auto) 6.7 Neutrophils % 68.8 Lymphocytes % 17.8 Monocytes % 12.6 H Eosinophils % 0.5 Basophils % 0.3 Nucleated RBC % 0 PT with INR 11.80 INR 1.00 PTT (Actin FS) 27.9 Sodium Cancelled Potassium Cancelled Chloride Cancelled Carbon Dioxide Cancelled Anion Gap Cancelled BUN Cancelled Creatinine Cancelled Est GFR (CKD-EPI)AfAm Cancelled Est GFR (CKD-EPI)NonAf Cancelled Random Glucose Cancelled Calcium Cancelled Phosphorus Magnesium Total Bilirubin AST ALT Alkaline Phosphatase Creatine Kinase Troponin I Total Protein Albumin Triglycerides Cholesterol Total LDL Cholesterol HDL Cholesterol TSH Free T4 COVID-19 (MAGGY) 07/29/20 07/29/20 07/29/20 14:35 16:15 20:10 WBC RBC Hgb Hct MCV MCH MCHC RDW Plt Count MPV Absolute Neuts (auto) Neutrophils % Lymphocytes % Monocytes % Eosinophils % Basophils % Nucleated RBC % PT with INR INR PTT (Actin FS) Sodium 142 Potassium 3.6 Chloride 109 H Carbon Dioxide 24 Anion Gap 10 BUN 9.4 Creatinine 0.6 Est GFR (CKD-EPI)AfAm 113.22 Est GFR (CKD-EPI)NonAf 97.69 Random Glucose 116 H Calcium 9.2 Phosphorus Magnesium Total Bilirubin 0.9 AST 11 L ALT 23 Alkaline Phosphatase 77 Creatine Kinase 26 Troponin I < 0.02 < 0.02 Total Protein 7.0 Albumin 3.8 Triglycerides Cholesterol Total LDL Cholesterol HDL Cholesterol TSH 0.59 Free T4 1.39 COVID-19 (MAGGY) Not detected 07/30/20 07/30/20 05:40 05:40 WBC 7.0 RBC 4.90 Hgb 14.4 Hct 43.7 MCV 89.2 MCH 29.5 MCHC 33.1 RDW 12.9 Plt Count 246 MPV 7.7 Absolute Neuts (auto) 3.9 Neutrophils % 56.5 Lymphocytes % 28.1 D Monocytes % 12.7 H Eosinophils % 2.0 D Basophils % 0.7 Nucleated RBC % 0 PT with INR INR PTT (Actin FS) Sodium 142 Potassium 3.9 Chloride 109 H Carbon Dioxide 26 Anion Gap 7 L BUN 11.8 Creatinine 0.6 Est GFR (CKD-EPI)AfAm 113.22 Est GFR (CKD-EPI)NonAf 97.69 Random Glucose 99 Calcium 9.1 Phosphorus 3.2 Magnesium 2.1 Total Bilirubin 0.6 AST 15 ALT 24 Alkaline Phosphatase 74 Creatine Kinase Troponin I < 0.02 Total Protein 6.9 Albumin 3.6 Triglycerides 69 Cholesterol 173 Total LDL Cholesterol 77 HDL Cholesterol 86 H TSH Free T4 COVID-19 (MAGGY) Active Medications Generic Name Dose Route Start Last Admin Trade Name Freq PRN Reason Stop Dose Admin Aspirin 81 mg 07/30/20 10:00 07/30/20 09:23 Ecotrin - PO 81 mg DAILY OLIVIA Administration Atenolol 25 mg 07/30/20 10:00 07/30/20 09:24 Tenormin - PO 25 mg DAILY OLIVIA Administration Enoxaparin Sodium 40 mg 07/30/20 10:00 07/30/20 09:23 Lovenox - SQ 40 mg DAILY OLIVIA Administration Levothyroxine Sodium 112 mcg 07/31/20 07:00 07/30/20 06:32 Synthroid - PO 112 mcg DAILY@0700 OLIVIA Administration Multivitamins/Minerals/Vitamin C 1 tab 07/30/20 10:00 07/30/20 09:24 Tab-A-Vit - PO 1 tab DAILY OLIVIA Administration Pantoprazole Sodium 20 mg 07/30/20 10:00 07/30/20 09:24 Protonix - PO 20 mg DAILY OLIVIA Administration Enzymes troponins are negative x3. ASSESSMENT/PLAN: ASSESSMENT/PLAN: 60 y.o. F PMH thyroid CA s/p total thyroidectomy presenting for chest pain, admitted for new onset A-fib. New onset of atrial fibrillation. On Tenormin and aspirin because of chads score is 1 will wait for cardiac evaluation before patient going on anticoagulation. Hypothyroidism stable continue Synthroid. Discussed the patient in detail about new onset arrhythmia and future management. Visit type - Emergency Visit Emergency Visit: Yes ED Registration Date: 07/29/20 Care time: The patient presented to the Emergency Department on the above date and was hospitalized for further evaluation of their emergent condition. - New Patient This patient is new to me today: Yes Date on this admission: 07/30/20 - Critical Care Critical Care patient: No - Discharge Referral Referred to [facility] Med P.C.: No
[2020-07-31] MEDS: LEVOTHYROXINE NA 112 MCG TABLET (FP) PO SCH (06:18)
[2020-07-31] MEDS: ATENOLOL 25 MG TABLET (FP) PO SCH (10:12)
--- NOTE | 2020-07-31 10:12 | PN ---
Physical Exam: SUBJECTIVE: Patient seen and examined at bedside no acute events overnight l; patient has remained in NSR ;she is very anxious to go home- she denies any palpitations; no SOB/N/V OBJECTIVE: Vital Signs Period Temp Pulse Resp BP Sys/Haider Pulse Ox Last 24 Hr 97.7 F-98.5 F 54-62 20-20 101-117/60-73 98-100 GENERAL: The patient is awake, alert, and fully oriented, in no acute distress. EYES: PEERLA: EOMI; no scleral icterus NECK: no JVD; no lymphadenopathy LUNGS: CTA B/L no rales, rhonchi or wheezing. HEART: Regular rate and rhythm, S1, S2 without murmur, rub or gallop. ABDOMEN: Soft, NT ND +BS in all 4 qadrants . EXTREMITIES: 2+ pulses, warm, well-perfused, no edema. PSYCH: Normal mood, normal affect. SKIN: Warm, dry, normal turgor, no rashes or lesions noted Laboratory Results - last 24 hr 07/29/20 16:15 COVID-19 (MAGGY) Not detected Active Medications Generic Name Dose Route Start Last Admin Trade Name Freq PRN Reason Stop Dose Admin Aspirin 81 mg 07/30/20 10:00 07/30/20 09:23 Ecotrin - PO 81 mg DAILY OLIVIA Administration Atenolol 25 mg 07/30/20 10:00 07/30/20 09:24 Tenormin - PO 25 mg DAILY OLIVIA Administration Enoxaparin Sodium 40 mg 07/30/20 10:00 07/30/20 09:23 Lovenox - SQ 40 mg DAILY OLIVIA Administration Levothyroxine Sodium 112 mcg 07/31/20 07:00 07/31/20 06:18 Synthroid - PO Not Given DAILY@0700 OLIVIA Multivitamins/Minerals/Vitamin C 1 tab 07/30/20 10:00 07/30/20 09:24 Tab-A-Vit - PO 1 tab DAILY OLIVIA Administration Pantoprazole Sodium 20 mg 07/30/20 10:00 07/30/20 09:24 Protonix - PO 20 mg DAILY OLIVIA Administration ASSESSMENT/PLAN: 60 y.o. F PMH thyroid CA s/p total thyroidectomy presenting for chest pain, admitted for new onset A-fib. #A-fib (new onset) with RVR -continue daily rate control, started atenolol 25mg -cardiology consulted- Dr. Martinez's group -echo as per cardiology recommendations (will be done tomorrow due to the holiday) -telemetry monitoring -starting daily ASA; [id number] score 1, no indication for AC at this time #Hx thyroid cancer -well controlled with synthroid 112mcg daily, continue -TSH & free T4 WNL #FEN -no standing fluids -monitor & replete electrolytes prn -Na controlled diet #PPX -DVT: LVX 40sq daily ATTENDING PHYSICIAN STATEMENT I saw and evaluated the patient. I reviewed the resident's note and discussed the case with the resident. I agree with the resident's findings and plan as documented. SUBJECTIVE: OBJECTIVE: ASSESSMENT AND PLAN:
[2020-07-31] MEDS: PANTOPRAZOLE 20 MG TABLET PO SCH (10:13)
[2020-07-31] MEDS: ASPIRIN COATED 81 MG TABLET.EC PO SCH (10:13)
[2020-07-31] MEDS: ENOXAPARIN NA (PORCINE) 40 MG/0.4 ML DISP.SYRIN SQ SCH (10:13)
[2020-07-31] MEDS: MULTIVITAMINS (DAILY MVI) TABLET (FP) PO SCH (10:13)
[2020-07-31 11:47] VITALS: BP 104/71; PULSE 65; TEMP 98
--- NOTE | 2020-07-31 12:05 | PN ---
Teaching Attending Note Name of Resident: Lisa Elder ATTENDING PHYSICIAN STATEMENT I saw and evaluated the patient. I reviewed the resident's note and discussed the case with the resident. I agree with the resident's findings and plan as documented. SUBJECTIVE: OBJECTIVE: ASSESSMENT AND PLAN: 60 y.o. F PMH thyroid CA s/p total thyroidectomy presenting for chest pain, admitted for new onset A-fib. New onset of atrial fibrillation. On Tenormin and aspirin because of chads score is 1 Hypothyroidism stable continue Synthroid. Would discharge home with plans for outpatient 2DECHO
--- NOTE | 2020-07-31 13:02 | DS ---
Physical Exam: SUBJECTIVE: Patient seen and examined Patient seen and examined at bedside no acute events overnight l; patient has remained in NSR ;she is very anxious to go home- she denies any palpitations; no SOB/N/V OBJECTIVE: Vital Signs Period Temp Pulse Resp BP Sys/Haider Pulse Ox Last 24 Hr 97.7 F-98.5 F 54-65 20-20 101-117/60-73 97-100 PHYSICAL EXAM GENERAL: The patient is awake, alert, and fully oriented, in no acute distress. EYES: PEERLA: EOMI; no scleral icterus NECK: no JVD; no lymphadenopathy LUNGS: CTA B/L no rales, rhonchi or wheezing. HEART: Regular rate and rhythm, S1, S2 without murmur, rub or gallop. ABDOMEN: Soft, NT ND +BS in all 4 qadrants . EXTREMITIES: 2+ pulses, warm, well-perfused, no edema. PSYCH: Normal mood, normal affect. SKIN: Warm, dry, normal turgor, no rashes or lesions noted LABS HOSPITAL COURSE: Date of Admission:07/29/20 60 y.o. F PMH thyroid CA s/p total thyroidectomy presenting for chest pain, admitted for new onset A-fib. CTA of the chest was done showing no evidence of PE; patient was started on atenolol and converted to NSR ; she styaed in sinus and rate controlled throughout her entire stay- she was dc home with cardio f/u in a week to have an echo done. she was not sent home on AC given CHADS-VASC of 1c Date of Discharge: 07/31/20 Minutes to complete discharge: 25 Discharge Summary Problems reviewed: Yes Reason For Visit: ATRIAL FIBRILLATION Current Active Problems Afib (Acute) Atrial fibrillation with RVR (Acute) Condition: Improved - Instructions Diet, Activity, Other Instructions: You came to the hospital after experiencing chest pain and palpitations. You were found to be in new-onset atrial fibrillation (an abnormal heart rhythm). You were seen by a security manager and started on a new medication to control your heart rate. You are no longer in atrial fibrillation, your symptoms imporved and are stable to be discharged home with cardiology follow up. Please resume all of your home medications in addition: please take the medication Atenolol 25mg daily Please follow up wit Dr Rios within one week Please follow up with the security manager, Dr Montalvo within one week as you will need to get an ultrasound of your heart *if you begin to experience chest pains, palpitations, dizziness, nausea/vomiting please return to the emergency room immediately Referrals: Komal Rios MD [Primary Care Provider] - 1 Week Donnell Montalvo MD [Staff Physician] - 1 Week Disposition: HOME - Home Medications Comprehensive Discharge Medication List: Ambulatory Orders Levothyroxine [Synthroid -] 112 mcg PO DAILY 01/08/19 Multivitamins [Multivit ([facility] Formulary)] 1 tab PO DAILY 01/08/19 Omeprazole 20 mg PO DAILY #7 capsule. 07/28/20 Atenolol [Tenormin -] 25 mg PO DAILY #30 tablet 07/31/20 Problem List - Problems (1) Afib Code(s): I48.91 - UNSPECIFIED ATRIAL FIBRILLATION Qualifiers: Atrial fibrillation type: paroxysmal Qualified Code(s): I48.0 - Paroxysmal atrial fibrillation (2) Atrial fibrillation with RVR Code(s): I48.91 - UNSPECIFIED ATRIAL FIBRILLATION (3) Chest pain Code(s): R07.9 - CHEST PAIN, UNSPECIFIED Qualifiers: Chest pain type: unspecified Qualified Code(s): R07.9 - Chest pain, unspecified This patient is new to me today: Yes Date on this admission: 07/31/20 Emergency Visit: Yes ED Registration Date: 07/29/20 Care time: The patient presented to the Emergency Department on the above date and was hospitalized for further evaluation of their emergent condition. Critical Care patient: No - Discharge Referral Referred to [facility] Med P.C.: No ATTENDING PHYSICIAN STATEMENT I saw and evaluated the patient. I reviewed the resident's note and discussed the case with the resident. I agree with the resident's findings and plan as documented. SUBJECTIVE: OBJECTIVE: ASSESSMENT AND PLAN:
--- NOTE | 2020-08-01 11:54 | EKG ---
Test Reason : Blood Pressure : / mmHG Vent. Rate : 118 BPM Atrial Rate : 118 BPM P-R Int : 138 ms QRS Dur : 080 ms QT Int : 308 ms P-R-T Axes : 076 056 056 degrees QTc Int : 431 ms SINUS TACHYCARDIA WITH PREMATURE ATRIAL COMPLEXES CANNOT RULE OUT ANTEROSEPTAL INFARCT , AGE UNDETERMINED ABNORMAL ECG Confirmed by MD KATY, LAZ ([id number]) on 08/01/2020 11:53:43 AM Referred By: Confirmed By:LAZ BURNS MD
--- NOTE | 2020-08-04 09:21 | EKG ---
Test Reason : Blood Pressure : / mmHG Vent. Rate : 131 BPM Atrial Rate : 105 BPM P-R Int : 000 ms QRS Dur : 080 ms QT Int : 312 ms P-R-T Axes : 000 056 053 degrees QTc Int : 460 ms ATRIAL FIBRILLATION WITH RAPID VENTRICULAR RESPONSE ABNORMAL ECG WHEN COMPARED WITH ECG OF 29-JUL-2020 14:38, ATRIAL FIBRILLATION HAS REPLACED SINUS RHYTHM CRITERIA FOR SEPTAL INFARCT ARE NO LONGER PRESENT ST NO LONGER ELEVATED IN INFERIOR LEADS ST NO LONGER ELEVATED IN LATERAL LEADS NONSPECIFIC T WAVE ABNORMALITY NO LONGER EVIDENT IN LATERAL LEADS Confirmed by BERNADETTE WEATHERS MD ([id number]) on 08/04/2020 9:21:43 AM Referred By: Confirmed By:BERNADETTE WEATHERS MD
== END 2020-07-31 14:37 | disposition home or self-care (01) | DRG 310 ==
LOC: JER 13:01 → OBSVTOIN 15:29 → JERBED 15:29 → J4W 22:11
PROVIDERS: ADMIT Internal Medicine; ATTEND Internal Medicine
DX: I48.0 Paroxysmal atrial fibrillation (principal); R07.9 Chest pain, unspecified; E03.9 Hypothyroidism, unspecified; R00.2 Palpitations
CPT/HCPCS: 36415; 71045-TC-FY; 71275-TC; 80053; 80061; 82550; 83721; 83735; 84100; 84439; 84443; 84484; 85025; 85610; 85730; 93005; 93010; 99285-25; U0003